=== PATIENT | female | born 1995 | race Two or more races ===

== ENCOUNTER 2025-03-11 04:34 | Emergency (ER) | payer MEDICAID, SELFPAY ==
--- OUTSIDE RECORDS SUMMARY | 2019-09-12 07:15 | XMS_ITS | Continuity of Care Document ---
Author Organization [facility] Address [address] [place] [address] Phone Care Team Providers Care Housecleaner Floor Name Role Phone Blanca Levy MD Unavailable Unavailable Medications Medication Instructions Dosage Effective Dates (start - stop) Status Comments fluconazole 150 mg tablet take 1 tablet by oral route once 150 MG - Active Flagyl 500 mg tablet take 1 tablet by or al route twice daily - Active Procedures Procedure Date URINE DIP NON-AUTO WITHOUT MICRO 2016 OFFICE VISIT NEW PT MIMIMUN Advance Directives Directive Yes / No Effective Date File Name No Information Encounters Encounter Description Practice Location Reason(s) For Visit Diagnoses Date Provider Providers Copied on Encounter [facility] [address] [place] [address], [id number], [phone] [place] [address] No Information Cam Rios. [address] [place] [address], [id number], . tel:[phone] OFFICE VISIT NEW PT MIMIMUN [facility] [address] [place] [address], [id number], tel:[phone] [facility] Vaginal itching (chief complaint) Vaginal itching Madan Crow. [address] [place] [address], [address], [place]. tel:[phone] Referring Provider: Tristin Hager, [address] [place] [address]. tel:[phone] Family History Family Member Type Diagnosis Age At Onset No Information Payers Payer name Insurance type Covered constitution party ID Bashir anne(s) [facility] CI [id number] Social History Type Description Quantity Date Captured Comments Sex Female Smoking Status No Information Chief Complaint And Reason For Visit No Information Reason For Referral Reason For Referral No Information Plan Of Treatment Date Type Action Status Goal Depression screening. Due on due Goal HPV (1st). Due on 7 due Goal Tdap. Due on due Goal Influenza vaccine. Due on due Goal Td vaccine. Due on due Goal HIV screen. Due on due History Of Present Illness Encounter Date Complaint History Of Prese nt Illness Vaginal itching Her symptoms beg an 1 Day ago. She states the problem has remained unchanged. The symptoms are reported as being moderate. Presently the patient is experiencing vaginal itching. Presently the patient is not experiencing vaginal irritation and vaginal odor. Last menstrual period was 01/27/2017. Relevant factors include Nexplanon. Her symptoms are not aggravated by anything. Her symptoms are not relieved by anything. Her symptoms are associated with dysuria but she denies fever or frequent urination. Additional information: was seen 2wks ago for vaginal itch and UTI states itchiness went away and came back. Functional Status Date Functional Assessmen t No Information Instructions Date Instruction Additional Infor mation Drink lots of fluids Follow medication instructionsWe will call if urine results are concerningIf not improving, see your doctor or return here Related to Vaginal itching Assessments Type Assessment Date No Information Patient Care Teams Name Effective Dates (start - stop) Status Members No Information
--- NOTE | ~2025-03-11 | XR_ITS ---
CLINICAL HISTORY: chest px 1 view chest x-ray Comparison: None provided Findings: No consolidation or effusion. Heart size is normal. No acute fracture. IMPRESSION: 1. No acute findings. This document has been electronically signed by: Lisbeth Salas MD on 03/11/2025 08:43:11
--- NOTE | ~2025-03-11 | US_ITS ---
CLINICAL HISTORY: Upper abdominal pain, elevated LFTs US abdomen limited Comparison: None provided Findings: The visualized pancreas is normal. The aorta and inferior vena cava are normal caliber. The liver is normal in size and echotexture. Intrahepatic bile ducts are mildly dilated. The common duct is 5 mm in diameter, which is within normal limits.. The gallbladder is distended and contains multiple shadowing stones within the fundus. Strike Off Machine Operator reports a negative sonographic Craven's sign. No gallbladder wall thickening or pericholecystic fluid. The main portal vein is antegrade. The right kidney is 11.3 cm in length. No ascites. IMPRESSION: Cholelithiasis without findings to suggest acute cholecystitis. Mild intrahepatic ductal dilation without extrahepatic ductal dilation. Findings may be physiologic. If there is high clinical concern for biliary obstruction, consider MRCP or ERCP. This document has been electronically signed by: Lisbeth Salas MD on 03/11/2025 09:11:52
--- NOTE | 2025-03-11 04:36 | ECG_ITS ---
Test Reason : CP Blood Pressure : */* mmHG Vent. Rate : 91 BPM Atrial Rate : 91 BPM P-R Int : 136 ms QRS Dur : 76 ms QT Int : 382 ms P-R-T Axes : 48 21 20 degrees QTcB Int : 469 ms Normal sinus rhythm with sinus arrhythmia Possible Left atrial enlargement Borderline ECG No previous ECGs available Referred By: Generic ED Physician Electronically Signed By: JOSH NIX
[2025-03-11 04:43] VITALS: BP 128/60; PULSE 95; RESP 16; TEMP 36.2; O2SAT 97; BMI 32.5
[2025-03-11 05:03] LABS: Hematocrit 38.7 % (37.0-47.0); Hemoglobin 13.7 g/dl (12.0-16.0); Imm Gran Abs Auto 0.01 X10*3/uL (0.00-0.03); Imm Gran Pct Auto 0.1 % (0.0-0.4); Lymphocytes Absolute Auto 1.7 X10*3/uL (1.2-4.9); MANUAL DIFF FLAG NO; Mean Corpuscular HGB Conc 35.4 g/dl (31.0-35.0); Mean Corpuscular Hemoglobin 30.0 pg (27.0-33.0); Mean Corpuscular Volume 84.7 fL (80.0-98.0); NRBC Abs Auto 0.000 X10*3/uL (0.0-0.012); NRBC Pct Auto 0.0 /100WBC (0.0-0.2); Platelet Count 339 X10*3/uL (160-400); Red Blood Count 4.57 X10*6/uL (4.20-5.50); White Blood Count 9.3 X10*3/uL (4.8-10.8)
[2025-03-11 05:08] VITALS: BP 118/63; PULSE 88; RESP 16; TEMP 36.8; O2SAT 99
[2025-03-11 05:22] LABS: Alanine Aminotransferase 1086 U/L (0-31); Albumin Level 4.5 g/dL (3.5-5.0); Alkaline Phosphatase 394 U/L (39-117); Anion Gap 14 (12-20); Aspartate Amino Transferase 570 U/L (5-31); Blood Urea Nitrogen 6 mg/dL (9-16); Calcium 9.1 mg/dL (8.4-10.2); Carbon Dioxide 26 mmol/L (22-29); Chloride 104 mmol/L (96-108); Creatinine Clr Calc Pharmacy 140.1; Estimated Glomerular Filt Rate > 60; Potassium 3.7 mmol/L (3.3-5.1); Sodium 140 mmol/L (135-145); Total Protein 7.9 g/dL (6.5-8.0)
[2025-03-11 05:31] LABS: Troponin-I High Sensitivity < 2.7 ng/L (<3.5-17.0)
--- NOTE | 2025-03-11 06:15 | ED_ITS ---
HPI - Chest Pain General Chief Complaint: Chest Pain Stated Complaint: Chest Pain Time Seen by Provider: 03/11/25 06:17 Source: patient Mode of arrival: ambulatory Limitations: no limitations History of Present Illness ED Provider: DR. Alcala HPI narrative: 29-year-old female s/p normal vaginal delivery 3 months ago presented with epigastric abdominal pain associated with nausea and vomiting x4 days initially pain responded to Mylanta at home but now it is not affected by Mylanta, no lower extremity swelling or tenderness, no fever, no chills, no sick contacts, no exposure to bad food, no recent travel. Related Data Home Medications ?Medication ?Instructions ?Recorded ?Confirmed Multi Vitamin 03/11/25 Allergies Allergy/AdvReac Type Severity Reaction Status Date / Time No Known Allergies Allergy Verified 03/11/25 04:45 Review of Systems 2 Review of Systems: All other systems are reviewed and are negative Constitutional: Reports as per HPI and Reports no additional constitutional complaints Eyes: Reports as per HPI and Reports no additional eye complaints Reports system reviewed and no additional complaints, except as documented Cardiovascular: Reports as per HPI and Reports no additional cardiovascular complaints Respiratory: Reports as per HPI and Reports no additional respiratory complaints Gastrointestinal: Reports as per HPI and Reports no additional gastrointestinal complaints Genitourinary: Reports no additional female genitourinary complaints Musculoskeletal: Reports no additional musculoskeletal complaints Skin/Breast: Reports system reviewed and no additional complaints, except as docu Psychiatric: Reports no additional psychiatric complaints Endocrine: Reports no additional endocrine complaints Hematologic/Lymphatic: Reports no additional hematologic/lymphatic complaints Allergic/Immunologic: Reports no additional allergic/immunologic complaints Reports system reviewed and no additional complaints, except as documented and Reports Abnormal speech present [facility] Social History Social History Smoked in Last 30 Days: No Use of substances other than those prescribed or required for medical reasons: No Advance Directives: No Advance Directives Information Provided: Yes Do you have a plan to hurt others: No Plan Physical Exam 2 Vital Signs: Vital Signs: Last Vital Signs Temp 98.1 F 03/11/25 08:21 Pulse 79 03/11/25 10:13 Resp 15 03/11/25 10:13 BP 101/68 03/11/25 10:13 Pulse Ox 99 03/11/25 10:13 O2 Del Method Room Air 03/11/25 10:13 BMI result Body Mass Index 32.5 Vital signs have been reviewed and appear to be correct. Blood pressure elevated. Heart rate normal. Respiratory rate normal. Temperature normal. Oxygen saturation normal. Appearance: Alert. Oriented X3. No acute distress. Head: Normal external exam. Normocephalic. Atraumatic. No Taylor signs noted. No raccoon eyes noted Eyes: +jaundice, PERRLA. EOMI. Conjunctiva and sclera +jaundice, Eyelids normal. ENT: TM's Normal. Pharynx normal. Uvula midline. Moist mucous membranes. No trismus noted. No drooling noted. No muffled voice noted. Neck: Normal inspection. Neck supple. FROM. No adenopathy. Thyroid Normal. No meningeal signs. No neck mass noted. CVS: Normal heart rate and rhythm. Heart sound normal. No murmurs noted. Pulses normal throughout. Respiratory: No respiratory distress. Painless inspiration. Breath sounds normal. No wheezes/rales/rhonchi noted. Chest nontender. No accessory muscle usage noted or decreased air movement noted. Abdomen: Soft and nontender. Bowel sounds normal in all 4 quadrants. No distention noted. No organomegaly noted. No visible injury noted. Back: No CVA tenderness. Full range of motion noted. Skin: Skin warm and dry. Normal skin color. Normal skin turgor. No rashes/lesions/lacerations noted. Extremities: No lower extremity edema. Extremities exhibit normal range of motion. Extremities nontender. Neuro: Oriented X 3. Cranial nerve exam: II-XII are grossly intact No motor deficit. No sensory deficit. Reflexes normal. Course Reevaluation(s) Reevaluation #1: Three months positive test today. 1. jaundice/ Elevated LFTs/transaminitis ultrasound showed cholelithiasis and intrahepatic ductal dilatation, no sign of acute cholecystitis. 2. Early , there is no physician gynecologist coverage today will transfer to [facility]. 3. Slight D-dimer elevation with normal RR and O2 sat. Elevated D-dimer is likely secondary to early .al Time: 10:47 Medications Administered Discontinued Medications Generic Name Dose Route Start Last Admin Trade Name Freq PRN Reason Stop Dose Admin Al Hydroxide/Mg Hydroxide 30 ml 03/11/25 06:09 03/11/25 06:44 Magnesium Hydrox/Alum Hydrox 30 Ml Oral.Susp PO 03/11/25 06:10 30 ml ONCE ONE Administration Famotidine 20 mg 03/11/25 06:09 03/11/25 06:44 Famotidine/Pf 20 Mg/2 Ml Vial IVPUSH 03/11/25 06:10 20 mg ONCE ONE Administration Lactated Ringer's 1,000 mls @ 999 mls/hr 03/11/25 07:00 03/11/25 10:01 Lr IV 03/11/25 08:00 Infused .Q1H1M JEAN Infusion Ondansetron HCl 4 mg 03/11/25 06:21 03/11/25 06:44 Ondansetron Hcl 4 Mg/2 Ml Vial IVPUSH 03/11/25 06:22 4 mg ONCE ONE Administration Medical Decision Making Differential Diagnosis Differential Diagnoses: The differential diagnosis associated with the presentation includes (Choledocholithiasis, acute cholecystitis, infectious hepatitis, electrolyte derangement, early , severe anemia.) Admission/Observation Consideration of admission/observation: Escalation of care including admission/observation considered Consult Healthcare Provider Management of the patient was discussed with: Hand Therapist (Dr. Romero (OBGYN service at [facility]), and Dr. Johnson.) Lab Data MDM Lab Attestation statement: I reviewed the patient's lab results. 03/11/25 05:00 03/11/25 05:02 Labs: Lab Results 03/11/25 03/11/25 03/11/25 Range/Units 05:00 05:02 06:29 WBC 9.3 (4.8-10.8) X10*3/uL RBC 4.57 (4.20-5.50) X10*6/uL Hgb 13.7 (12.0-16.0) g/dl Hct 38.7 (37.0-47.0) % MCV 84.7 (80.0-98.0) fL MCH 30.0 (27.0-33.0) pg MCHC 35.4 H (31.0-35.0) g/dl RDW 13.2 (11.0-16.0) % Plt Count 339 (160-400) X10*3/uL MPV 10.1 (9.4-12.3) fL Immature Gran % (Auto) 0.1 (0.0-0.4) % Neut % (Auto) 71.8 (45-73) % Lymph % (Auto) 18.7 L (20-40) % Cavalier % (Auto) 7.9 (2-11) % Eos % (Auto) 1.4 (0-4) % Baso % (Auto) 0.1 (0-2) % Lymph # (Auto) 1.7 (1.2-4.9) X10*3/uL Cavalier # (Auto) 0.7 (0.1-1.2) X10*3/uL Eos # (Auto) 0.1 (0.0-0.4) X10*3/uL Baso # (Auto) 0.0 (0.0-0.2) X10*3/uL Abs Immat Gran (auto) 0.01 (0.00-0.03) X10*3/uL Absolute Neuts (auto) 6.7 (2.0-8.3) x10*3/uL Absolute Nucleated RBC 0.000 (0.0-0.012) X10*3/uL Nucleated RBC % (auto) 0.0 (0.0-0.2) /100WBC D-Dimer High Sensitivty 530 NG/ML Sodium 140 (135-145) mmol/L Potassium 3.7 (3.3-5.1) mmol/L Chloride 104 (96-108) mmol/L Carbon Dioxide 26 (22-29) mmol/L Anion Gap 14 (12-20) BUN 6 L (9-16) mg/dL Creatinine 0.64 (0.5-1.4) mg/dL Estim Creat Clear Calc 140.1 Estimated GFR > 60 Random Glucose 143 H (60-115) mg/dL Calcium 9.1 (8.4-10.2) mg/dL Total Bilirubin 5.9 H (0.0-1.0) mg/dL AST 570 H (5-31) U/L ALT 1086 H (0-31) U/L Alkaline Phosphatase 394 H (39-117) U/L Troponin I High Sens < 2.7 (<3.5-17.0) ng/L Total Protein 7.9 (6.5-8.0) g/dL Albumin 4.5 (3.5-5.0) g/dL Beta HCG, Quant 86 mIU/mL Independent Interpretation I performed an independent interpretation of an: Ultrasound (Abdomen ultrasound:Cholelithiasis without findings to suggest acute cholecystitis. Mild intrahepatic ductal dilation without extrahepatic ductal dilation. Findings may be physiologic. If there is high clinical concern for biliary obstruction, consider MRCP or ERCP.) Radiology Impression Discussion of test interpretation with radiology: I have reviewed the radiologist's reading. Discharge Plan Discharge Clinical Impression: Abdominal pain in early , Transaminitis, Jaundice, Choledocholithiasis Patient Disposition: [facility] Transfer Details: [facility] Prescriptions: No Action Multi Vitamin Print Language: Serbian
[2025-03-11 06:29] VITALS: BP 112/64; PULSE 81; RESP 24; TEMP 36.7; O2SAT 100
[2025-03-11] MEDS: Magnesium Hydrox/Alum Hydrox 30 ML ORAL.SUSP PO (06:44)
[2025-03-11 06:59] LABS: D Dimer High Sensitivity 530 NG/ML
[2025-03-11 07:22] VITALS: BP 113/51; PULSE 75; RESP 20; TEMP 36.7; O2SAT 98
[2025-03-11] MEDS: Lactated Ringers 1,000 ML 999 ML IV (07:27)
[2025-03-11 08:21] VITALS: BP 99/56; PULSE 89; RESP 17; TEMP 36.7; O2SAT 100
[2025-03-11 09:05] LABS: HBS Num1 105.00 mIU/mL (0-7.99); HBc Num1 0.08 S/CO (0.00-0.79); HBsAGNum1 0.32 S/CO (0.00-0.99); Hepatitis A Antibody IgM 0.34 Index (0-0.79); Hepatitis B Surface Antigen Negative (Negative); ~HepC Num1 0.10 S/CO (0.00-0.79); ~Hepatitis A Antibody IgM Nonreactive (Nonreactive); ~Hepatitis B Surface Antibody REACTIVE (Nonreactive); ~Hepatitis C Antibody Nonreactive (Nonreactive)
[2025-03-11 10:13] VITALS: BP 101/68; PULSE 79; RESP 15; O2SAT 99
--- NOTE | 2025-03-11 11:52 | PC.NURSE ---
PT TO TRANSFER TO [facility] VIA ems. ATTEMPTED TO CALL REPORT TO [facility] X2. REPORT GIVEN TO EMS.
== END 2025-03-11 12:00 | disposition short-term general hospital (02) ==
PROVIDERS: Emergency Provider Emergency Medicine
DX: O21.0 Mild hyperemesis gravidarum (principal); R07.89 Other chest pain; R10.13 Epigastric pain; R74.01 Elevation of levels of liver transaminase levels; K80.50 Calculus of bile duct without cholangitis or cholecystitis without obstruction; R17 Unspecified jaundice; Z3A.01 Less than 8 weeks gestation of pregnancy; Z79.899 Other long term (current) drug therapy
CPT/HCPCS: 36415; 71045; 76705; 80053; 84484; 84702; 85025; 85379; 86704; 86706; 86709; 86803; 87340; 93005; 96361; 96374; 96375; 99285; J1308; J2405; J7120

== ENCOUNTER → 2025-03-11 04:36 | Outpatient (BNV) | payer MEDICAID, SELFPAY | PROVIDERS: Emergency Provider Emergency Medicine; Visit Provider Internal Medicine | DX: R07.9 Chest pain, unspecified (principal) | CPT/HCPCS: 93010 ==

== ENCOUNTER → 2025-03-11 05:20 | Outpatient (BNV) | payer MEDICAID, SELFPAY | PROVIDERS: Emergency Provider Emergency Medicine; Visit Provider Radiology Diagnostic Radiology | DX: K80.20 Calculus of gallbladder without cholecystitis without obstruction (principal); R07.9 Chest pain, unspecified | CPT/HCPCS: 71045; 76705 ==